=== PATIENT | male | born 1990 | race Two or more races ===

== ENCOUNTER 2025-03-11 00:54 | Emergency (ER) | payer MEDICAID, SELFPAY ==
[2025-03-11 00:55] VITALS: BMI 35.5
[2025-03-11 01:15] VITALS: BP 168/98; PULSE 123; RESP 18; TEMP 37.6; O2SAT 96
--- NOTE | 2025-03-11 01:31 | XR_ITS ---
Upright PA chest film on 03/11/2025 at 1:40 a.m. Comparison study 09/27/2012 CLINICAL INDICATION: Cough for 1 month fever and constipation for 2 days Heart size and configuration are normal as is the mediastinum. There is very marked elevation of the right hemidiaphragm, this was present on the previous film in August 2012 although it is a little bit more elevated on today's study. Based on the prior film this probably represents normal anatomy in this patient. As best I can tell I do not see any infiltrates or fluid posteroinferior to the elevated right hemidiaphragm. The right lung is felt to be entirely clear in the left lung and pleural space are clear IMPRESSION: Negative chest
--- NOTE | 2025-03-11 01:31 | XR_ITS ---
Examination: Abdomen AP single view Technique: AP portable upright abdomen, single view Exam date and time: 03/11/2000 indication: Cough for 1 month fever constipation for the last 2 days FINDINGS: Liver and spleen are normal in size. No abnormal calcifications are seen anywhere. Visible bones appear all right. In the bowel gas pattern there is a normal amount of fecal material in the proximal third of the colon. There are a few loops of distal small bowel in the right lower quadrant which are mildly dilated. A few additional minimally dilated loops of small bowel are seen in the right mid abdomen. In all other respects the small bowel loops are perfectly normal. IMPRESSION: 1. There are a few loops of small bowel which are minimally but definitely dilated with no air-fluid levels. This pattern is felt to be most consistent with a mild generalized ileus. 2. No evidence of any bowel obstruction is identified anywhere. 3 study is otherwise entirely negative
[2025-03-11 02:56] VITALS: BP 171/88; PULSE 106; RESP 20; TEMP 37; O2SAT 98
[2025-03-11] MEDS: MAGNESIUM CITRATE 300 ML BTL PO (03:09)
[2025-03-11 03:12] VITALS: BP 199/138; PULSE 125; RESP 18; O2SAT 99
--- NOTE | 2025-03-11 03:51 | EDNOTE_ITS ---
Upper Respiratory Inf. RME/HPI General Chief Complaint: Fever Stated Complaint: FEVER, COUGH, CONSTIPATION Time Seen by Provider: 03/11/25 01:31 Arrival date/time: 03/11/25 00:54 34M with no significant PMH presents to ED with 1 month of intermittent cough, as well as 1 day of fevers/chills and constipation. Patient denies SOB, N/V, and dysuria/hematuria. Limitations: no limitations Related Data Previous Rx's ?Medication ?Instructions ?Recorded loratadine 10 mg tablet 10 mg PO QDAY ##30 05/20/12 D-Methorphan Hb/Prometh Hcl 1 tsp PO [id number] ##1 09/27 (Promethazine W/Dm Syrup) Allergies Allergy/AdvReac Type Severity Reaction Status Date / Time No Known Allergies Allergy Verified 03/11/25 00:57 Review of Systems Review of Systems Systems Reviewed: All systems reviewed, normal except as documented Constitutional Constitutional: Reports as per HPI, Reports chills and Reports fever(s) Respiratory Respiratory: Reports as per HPI and Reports cough Gastrointestinal Gastrointestinal: Reports abdominal pain and Reports constipation Past Medical History Past Medical History CARDIAC: Negative Congestive Heart Failure RESPIRATORY: Negative Chronic Obstructive Pulmonary Disease (COPD) GENITOURINARY: Negative Renal Disease ENDOCRINE: Negative Diabetes Mellitus Type 1 or Diabetes Mellitus Type 2 Social History SMOKING STATUS: Never smoker ED Exam General Limitations: Present no limitations General appearance: Present alert and in no apparent distress Head Head exam: Present atraumatic ENT ENT exam: Present normal exam, normal oropharynx and mucous membranes moist Neck Neck exam: Present normal inspection, full ROM and trachea midline Chest Chest inspection: Present normal inspection and symmetric chest wall rise Respiratory Respiratory exam: Present normal lung sounds bilaterally Abdominal Exam Abdominal exam: Present soft; Absent tenderness Neurological Exam Neurological exam: Present alert and oriented X3 Psychiatric Psychiatric exam: Present normal affect and normal mood Skin Skin exam: Present warm, dry, intact and normal color Course Quality Measures none Orders Category Date Time Status Bedside COVID-19 Antigen Test NOW Care 03/11/25 01:31 Active Bedside Influenza A&B Antigen Test NOW Care 03/11/25 01:32 Completed XR abdomen 1V Stat Exams 03/11/25 01:31 Taken XR chest 1V portable Stat Exams 03/11/25 01:31 Taken Magnesium Citrate Liqd [Citrate of Magnesia Liqd] Med 03/11/25 02:48 Discontinued 300 ml PO X1 ONE Vital Signs Vital signs: Vital Signs Temperature 99.7 F 03/11/25 01:15 Pulse Rate 123 H 03/11/25 01:15 Respiratory Rate 18 03/11/25 01:15 Blood Pressure 168/98 H 03/11/25 01:15 Pulse Oximetry (%) 96 03/11/25 01:15 Oxygen Delivery Method Room Air 03/11/25 01:15 O2 at 96% on RA and WNLs Upper Respiratory Infection MDM Narrative MDM Narrative:: 34M with no significant PMH presents to ED with 1 month of intermittent cough, as well as 1 day of fevers/chills and constipation. Patient denies SOB, N/V, and dysuria/hematuria. Physical exam reveals clear oropharynx and lungs. Normal WOB. No ab tenderness. Patient is afebrile, calm, and alert. Wet CXR read unremarkable pending official report. Wet ab XR reveals moderate- large stool burden pending official report. Swabs neg. Meds and residential counselor given. Patient data External records reviewed:: [facility] previous records Clinical information provided by:: patient Social determinants that could affect healthcare access:: none Patient has the following chronic illnesses:: none How is presenting disease/condition affected by chronic disease/condition?: no chronic disease Evaluation data The following diagnostics were reviewed and interpreted by me:: lab results and radiology exam(s) Lab and/or radiology exams considered but not ordered:: ordered Interpretation Summary: above Medications / Prescriptions Medications or Prescriptions considered but not ordered:: ordered Medication administrations:: Medication Administration History Discontinued Medications Magnesium Citrate (Magnesium Citrate 300 Ml Btl) 300 ml PO X1 ONE Stop: 03/11/25 02:49 Last Admin: 03/11/25 03:09 Dose: 300 ml Documented By: AC above Consultations Consultation(s) initiated? (list below): No Diagnosis Upper Respiratory Differential Diagnosis: upper respiratory infection, croup, otitis media, sinusitis, viral infection, bronchitis, influenza, pharyngitis and other (constipation) Most likely diagnosis given after review of the tests above:: constipation and URI Admission Indicated Admission indicated?: not indicated Admission Request Was there a request for admission?: No Disposition Plan Disposition Plan: Discharge Discharge Attestation Discharge Attestation: The patient and all family members were given an opportunity to ask questions and understood the discharge instructions. Discharge instructions specifically effects, indications for sooner follow up or return to the emergency department, and the expected course of current diagnosis. Patient condition: Stable Discharge Plan Plan Patient Disposition: HOME (Self Care) Discharge Disposition comment: Stable Prescriptions/Referrals Prescriptions/Med Rec: No Action loratadine 10 MG tablet 10 mg PO QDAY Qty: 30 0RF D-Methorphan Hb/Prometh Hcl (Promethazine W/Dm Syrup) 118 ML syrup 1 tsp PO [id number] Qty: 1 0RF Problem List Clinical Impression: Upper respiratory infection, Constipation Patient/Caregiver Discharge Instructions Education Materials: ED Constipation (Adult), ED URI, Viral, No Abx (Adult) Additional Instructions: Please follow-up with PCP within 24-48 hours and return immediately if symptoms worsen. Ibuprofen/Tylenol can be used simultaneously for greater fever/pain control. Benadryl is good for cough, congestion, and sleep. Keep hydrated. Advance diet as tolerated. Print Language: Andorran Stand Alone Forms: Naty Award Info., Patient Portal Info Letter PA/NATIONAL [employer]NER OPERATOR Supervising Physician PA/[employer] OPERATOR Supervising Physician: Dr. Calero
== END 2025-03-11 03:13 | disposition home or self-care (01) ==
LOC: SERX 03:35
PROVIDERS: Emergency Provider Emergency Medicine; PCP Nurse Practitioner Family
DX: J06.9 Acute upper respiratory infection, unspecified (principal); K59.00 Constipation, unspecified
CPT/HCPCS: 71045; 74018; 87502; 87635; 99283; A9270